=== PATIENT | male | born 1960 | race American Indian/Alaskan Native ===

== ENCOUNTER 2019-01-06 07:53 | Outpatient (CLI) | payer MEDICAID ==
[2019-01-06] MEDS ORDERED: XYLOCAINE TOPICAL 4% TP ONE (08:30)
[2019-01-06] MEDS ORDERED: AD OINTMENT TP SCH (10:00)
== END 2019-01-06 07:54 | disposition home or self-care (01) ==
LOC: WOUND 07:53
PROVIDERS: ATTEND Surgery
DX: I70.245 Atherosclerosis of native arteries of left leg with ulceration of other part of foot (principal); L97.521 Non-pressure chronic ulcer of other part of left foot limited to breakdown of skin; M79.672 Pain in left foot; R41.3 Other amnesia; I10 Essential (primary) hypertension; I48.91 Unspecified atrial fibrillation; F20.9 Schizophrenia, unspecified; F17.200 Nicotine dependence, unspecified, uncomplicated
CPT/HCPCS: 99205; 99215; G0463

== ENCOUNTER 2019-01-13 07:51 | Outpatient (CLI) | payer MEDICAID ==
[2019-01-13] MEDS ORDERED: XYLOCAINE TOPICAL 4% TP ONE (08:30)
== END 2019-01-13 07:52 | disposition home or self-care (01) ==
LOC: WOUND 07:51
PROVIDERS: ATTEND Surgery
DX: I70.245 Atherosclerosis of native arteries of left leg with ulceration of other part of foot (principal); L97.521 Non-pressure chronic ulcer of other part of left foot limited to breakdown of skin; G81.90 Hemiplegia, unspecified affecting unspecified side; I48.91 Unspecified atrial fibrillation; I10 Essential (primary) hypertension; F17.200 Nicotine dependence, unspecified, uncomplicated; F20.9 Schizophrenia, unspecified
CPT/HCPCS: 93925; 99214; G0463

== ENCOUNTER 2019-01-13 08:47 | Outpatient (CLI) | payer MEDICAID ==
--- NOTE | 2019-01-13 14:27 | Vascular Lab Report ---
PROCEDURE: VL ARTERIAL DUPLEX LE BILAT TECHNIQUE: Duplex Doppler ultrasound of the bilateral lower extremity arteries was performed with im age documentation. 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 FINDINGS: RIGHT LOWER EXTREMITY: Arterial waveforms: Triphasic with the exception of the popliteal artery which demonstrates monophas ic waveforms prestenosis. The right posterior tibial artery demonstrates monophasic waveforms. Thrombus: There is lack of flow within the right anterior tibial artery . Stenosis: Mild focally elevated velocities seen within the right distal popliteal artery with a peak systolic velocity of 150.2 cm/s. There is peripheral noncalcified atherosclerotic plaque. The veloci ty just proximal to the area of stenosis is 10.9 cm/s. Color signal: Lack of color flow is seen in the right anterior tibial artery . Significant segmental velocity differential: See above . LEFT LOWER EXTREMITY: Arterial waveforms: Triphasic. Thrombus: There is lack of color flow within the left anterior tibial artery . Stenosis: None . Color signal: Lack of color flow was noted in the left anterior tibial artery . Significant segmental velocity differential: None . A stent is present in the left popliteal artery which appears patent. Peak systolic velocity in the l eft popliteal artery stent is 83 cm/s. IMPRESSION: 1. 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 2. 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 3. Patent left popliteal artery stent. This document is electronically signed by Liane Villanueva., Jan 13 2019 02:25:24 PM ET
== END 2019-01-13 08:48 | disposition home or self-care (01) ==
LOC: VAS 08:47
PROVIDERS: ATTEND Surgery
DX: L97.414 Non-pressure chronic ulcer of right heel and midfoot with necrosis of bone (principal)
CPT/HCPCS: 93925